=== PATIENT | female | born 1960 | race African-American/Black ===

== ENCOUNTER 2018-09-04 20:01 | Emergency (ER) | payer BC ==
[~2018-09-04] VITALS: Ht 167.6 cm; Wt 68.0 kg
[2018-09-04 20:30] VITALS: BP 142/59
== END 2018-09-04 22:12 | disposition home or self-care (01) ==
LOC: ER 20:01
DX: E10.649 Type 1 diabetes mellitus with hypoglycemia without coma (principal); I10 Essential (primary) hypertension; Z79.4 Long term (current) use of insulin; Z98.890 Other specified postprocedural states; Z90.10 Acquired absence of unspecified breast and nipple
CPT/HCPCS: 82962; 99283